=== PATIENT | male | born 1950 | race Two or more races ===

== ENCOUNTER 2019-04-14 09:43 | Outpatient (CLI) | payer MEDICARE ==
[2019-04-14 17:46] LABS: CREATININE,URINE 169.5 mg/dL; MICROALBUMIN,URINE 21.7 mg/dL (0-300.0)
[2019-04-14 17:50] LABS: ALBUMIN 3.8 g/dL (3.2-5.5); ALBUMIN/GLOBULIN RATIO 1.3 (1.0-2.2); ALKALINE PHOSPHATASE 47 IU/L (42-121); ALT ALANINE AMINOTRANSFERASE 14 IU/L (10-60); AST ASPARTATE AMINOTRANSFERASE 16 IU/L (10-42); BILIRUBIN,TOTAL 0.5 mg/dL (0.2-1.0); BUN - BLOOD UREA NITROGEN 16 mg/dL (6-20); CALCIUM 9.5 mg/dL (8.5-10.3); CARBON DIOXIDE - CO2 27 mmol/L (21-32); CHLORIDE 98 mmol/L (101-111); CHOL/HDL RATIO 5.3 (<5.0); CHOLESTEROL 212 mg/dL; CREATININE 0.8 mg/dL (0.6-1.2); GFR - MDRD 96 (>89); GLUCOSE 246 mg/dL (70-100); HDL CHOLESTEROL 40 mg/dL; SODIUM 136 mmol/L (135-145); TOTAL PROTEIN 6.8 g/dL (6.7-8.2); URIC ACID 6.5 mg/dL (2.6-7.2)
[2019-04-14 18:11] LABS: LDL CHOLESTEROL,DIRECT 99 mg/dL; LDLD/HDL RATIO 2.5 (<3.6)
[2019-04-14 18:15] LABS: HEMOGLOBIN A1C 1.66 g/dL; HEMOGLOBIN A1C % 11.1 % (4.6-6.2)
== END 2019-04-14 09:44 | disposition home or self-care (01) ==
LOC: LAB.S 09:43
PROVIDERS: ATTEND Internal Medicine
DX: E78.5 Hyperlipidemia, unspecified (principal); E11.9 Type 2 diabetes mellitus without complications; Z79.4 Long term (current) use of insulin; M10.9 Gout, unspecified
CPT/HCPCS: 36415; 80053; 80061; 82043; 82570; 83036; 83721; 84550